=== PATIENT | female | born 1990 | race Caucasian/White ===

== ENCOUNTER 2016-09-03 11:00 | Inpatient (IN) | payer OTHER ==
[~2016-09-03] VITALS: Ht 144.8 cm; Wt 81.8 kg
[2016-09-03 11:11] VITALS: Ht 144.8 cm; Wt 81.8 kg
[2016-09-03] MEDS: LACTATED RINGER'S 1,000 ML IV SCH ×2 (11:14→16:18)
[2016-09-03] MEDS ORDERED: METHYLERGONOVINE 0.2 MG INJ IM PRN (11:30)
[2016-09-03] MEDS ORDERED: LIDOCAINE 1% (MPF) 30 ML INJ INJ PRN (11:30)
[2016-09-03] MEDS ORDERED: OXYTOCIN 30 UNITS/LR 500 ML IV PRN (11:30)
[2016-09-03] MEDS ORDERED: MISOPROSTOL 200 MCG TAB PR PRN (11:30)
[2016-09-03] MEDS ORDERED: CARBOPROST 250 MCG INJ IM PRN (11:30)
[2016-09-03 11:44] LABS: BASOPHIL # 0.1 10^3/ul (0.0-0.1); BASOPHILS % 0.5 % (0.0-2.0); EOSINOPHILS # 0.1 10^3/ul (0.0-0.5); EOSINOPHILS % 0.8 % (0.0-7.0); HEMATOCRIT 38.3 % (37.0-47.0); HEMOGLOBIN 13.2 g/dl (12.0-16.0); LYMPHOCYTES # 1.8 10^3/ul (0.8-2.9); LYMPHOCYTES % 15.9 % (15.0-51.0); MEAN CORPUSCULAR HEMOGLOBIN 28.8 pg (29.0-33.0); MEAN CORPUSCULAR HGB CONC 34.4 g/dl (32.0-37.0); MEAN CORPUSCULAR VOLUME 83.7 fl (82.0-101.0); MEAN PLATELET VOLUME 11.4 fl (7.4-10.4); MONOCYTE # 0.5 10^3/ul (0.3-0.9); MONOCYTES % 4.4 % (0.0-11.0); NEUTROPHIL # 8.9 10^3/ul (1.6-7.5); NEUTROPHILS % 78.4 % (39.0-77.0); PLATELET COUNT 156 10^3/UL (140-440); RED BLOOD COUNT 4.58 10^6/ul (4.20-5.40); RED CELL DISTRIBUTION WIDTH 13.6 % (11.5-14.5); UNCORRECTED WBC 11.4 10^3/ul (4.8-10.8); WHITE BLOOD COUNT 11.4 10^3/ul (4.8-10.8)
[2016-09-03 11:57] LABS: CONDITION 1
[2016-09-03 12:03] LABS: INR 1.04; PARTIAL THROMBOPLASTIN TIME 30.3 Sec (25.0-35.0); PROTIME 13.6 Sec (12.2-14.2); PT RATIO 1.1
[2016-09-03] MEDS ORDERED: AMPICILLIN 2 GM/NS (PMX) 100 ML ONE (12:23)
[2016-09-03] MEDS ORDERED: AMPICILLIN 2 GM/NS (PMX) 100 ML IVPB ONE (12:30)
[2016-09-03] MEDS: MISOPROSTOL 25 MCG CAPSULE PO SCH ×3 (12:44→21:00)
[2016-09-03] MEDS: AMPICILLIN 1 GM/NS (PMX) 50 ML IVPB SCH ×3 (13:00→21:02)
[2016-09-03] MEDS: LACTATED RINGER'S 1,000 ML IV PRN ×2 (19:11→22:16)
[2016-09-03] MEDS ORDERED: OXYTOCIN 30 UNITS/LR 500 ML IV SCH ×2 (20:00→22:00)
[2016-09-03] MEDS ORDERED: BUTORPHANOL 2 MG INJ IV PRN (20:00)
[2016-09-03] MEDS ORDERED: FENTAnyl 2MCG/ML-ROPIV 0.2% 100 ML ONE (22:41)
[2016-09-03] MEDS ORDERED: FENTAnyl 2MCG/ML-ROPIV 0.2% 100 ML BAG EPI SCH (23:00)
[2016-09-03] MEDS ORDERED: NALOXONE (0.4 MG/ML) INJ IV PRN (23:00)
--- NOTE | 2016-09-03 23:03 | HP ---
Date/Time of Note Date/Time of Note DATE: 09/03/16 TIME: 22:59 OB - History Hx of Present Chief Complaint: scheduled induction Last Menstrual Period: December 13, 2015 Estimated Due Date: Sep 18, 2016 : 2 Para: 0 Spontaneous : 1 Therapeutic : 0 Care: Good Care Ultrasounds: Normal mid trimester US Obstetrical Complications: Growth Restriction Medical Complications: Respiratory Past Family/Social History * Past Medical, Surgical, Family and Obstetric Histories reviewed from chart. GBS Status: Positive OB Admission Exam Physical Exam HEENT: WNL Heart: Rhythm Normal Lungs: Clear Abdomen: WNL Extremities: Normal Cervical Dilatation: Fingertip Effacement: 50% Membranes: Intact Accelerations: Accelerations Present Decelerations: No Decelerations Varibility: Moderate Last 72 hours Lab Results CBC & BMP 09/03/16 11:28 OB Assessment/Plan Reason for admission: induction of labor Plan: Induction Induction Method: per Misoprostol Protocol ALBAN ALCANTAR MD Sep 03, 2016 23:03
[2016-09-04] VITALS (41 sets, daily range): BP systolic 110–141; BP diastolic 64–94; PULSE 68–99; RESP 18
[2016-09-04] MEDS: AMPICILLIN 1 GM/NS (PMX) 50 ML IVPB SCH ×5 (00:54→16:38)
[2016-09-04] MEDS: LACTATED RINGER'S 1,000 ML IV SCH ×2 (03:36→11:53)
--- NOTE | 2016-09-04 17:36 | LDN ---
Date/Time of Note Date/Time of Note DATE: 09/04/16 TIME: 17:29 Delivery Summary over intact perineum Placenta Delivered: Spontaneously Meconium: none Perineum intact?: No (Please specify) Perineal laceration: 1 Perineal laceration repair: First degree laceration repaired with 3-0 Vicryl. Anesthesia type: Epidural Estimated blood loss: 150 Sponge & Needle done & correct: Yes All needle counts correct: Yes Any foreign bodies felt in the: No (Please specify) Problems: Infant Delivery Information Sex Infant Sex: female Apgars 1 Minute: 8 5 Minute: 8 Suctioning Nose & mouth suctioned at farheen: Yes Delee suction performed: No Umbilical Cord Umbilical cord with: 3 Vessels Cord presentations: no nuchal cord Cord Blood was obtained: Yes Mother & Baby Disposition Disposition Mom & Baby to Maternity; Good: Yes ALBAN ALCANTAR MD Sep 04, 2016 17:36
--- NOTE | 2016-09-04 20:37 | DELSUM ---
Delivery Summary A-C Datetime Report Generated by CPN: 09/04/2016 20:36 DELIVERY PERSONNEL Public Works Director: Cathryn Hebert MATERNAL INFORMATION Delivery Anesthesia: Epidural Medications in Delivery: OXYTOCIN Estimated Blood Loss (ml): 150 Placenta Cultured: No Maternal Complications: Other Other Maternal Complications: IUGR IOL RN Comments: PLACENTA TO PATHOLOGY LABOR SUMMARY EDC: 09/18/2016 00:00 No. Babies in Womb: 1 Attempted: No Labor Anesthesia: Epidural LABOR INFORMATION Reason for Induction: Other Reason for Induction- Other: IUGR Onset of Labor: 09/03/2016 19:00 Complete Dilatation: 09/04/2016 14:42 Cervical Ripening Agents: Cytotec @ Cervical Ripening Agents: Cytotec @ 50 Other Ripening Agents: care resumed Oxytocin: Augmentation Group B Beta Strep: Positive Antibiotics # of Doses: 8 Antibiotics Time of Last Dose: 1638 Steroids Given: None Reason Steroids Not Administered: Not Applicable MEMBRANES Membranes Rupture Method: Artificial Rupture of Membranes: 09/04/2016 04:49 Length of Rupture (hr): 12.30 Amniotic Fluid Color: Clear Amniotic Fluid Color: Clear Amniotic Fluid Color: Clear Amniotic Fluid Color: Clear Amniotic Fluid Amount: Moderate Amniotic Fluid Amount: Moderate Amniotic Fluid Amount: Moderate Amniotic Fluid Amount: Moderate Amniotic Fluid Amount: Moderate Amniotic Fluid Amount: Moderate Amniotic Fluid Amount: Small Amniotic Fluid Odor: None Amniotic Fluid Odor: None Amniotic Fluid Odor: None Amniotic Fluid Odor: None Amniotic Fluid Odor: None Amniotic Fluid Odor: None Amniotic Fluid Odor: None Amniotic Fluid Odor: None STAGES OF LABOR Stage 1 hr: 19 Stage 1 min: 42 Stage 2 hr: 2 Stage 2 min: 25 Stage 3 hr: 0 Stage 3 min: 3 Total Time in Labor hr: 22 Total Time in Labor min: 10 VAGINAL DELIVERY Laceration Extension: First Degree Laceration Type: Perineal Laceration Repair: Yes Initial Vag Sponge Count: 20 Final Vag Sponge Count: 20 Initial Vag Sharps Count: 2 Final Vag Sharps Count: 2 Sponge Count Correct: Yes; Vaginal Sweep Performed Sharps Count Correct: Yes BABY A INFORMATION Delivery Date/Time: 09/04/2016 17:07 Method of Delivery: Vaginal Born in Route : No : N/A Forceps: N/A Vacuum Extraction: N/A Shoulder Dystocia : N/A SHOULDER DYSTOCIA BABY A Delivery Date/Time: 09/04/2016 17:07 PRESENTATION/POSITION BABY A Presentation: Cephalic Presentation: Cephalic Presentation: Cephalic Presentation: Cephalic Presentation: Cephalic Presentation: Cephalic Cephalic Presentation: Vertex Vertex Position: Left Occipital Anterior Breech Presentation: N/A PLACENTA INFORMATION BABY A Placenta Delivery Time : 09/04/2016 17:10 Placenta Method of Delivery: Spontaneous Placenta Status: Delivered SCORES BABY A Heart Rate 1 min: >100 bpm Resp Effort 1 min: Good Cry Reflex Irritability 1 min: Cough/Sneeze/Pulls Away Muscle Tone 1 min: Active Motion Color 1 min: Blue/Pale Resuscitation Effort 1 min: Oxygen SCORE 1 MIN: 8 Heart Rate 5 min: >100 bpm Resp Effort 5 min: Good Cry Reflex Irritability 5 min: Cough/Sneeze/Pulls Away Muscle Tone 5 min: Active Motion Color 5 min: Blue/Pale Resuscitation Effort 5 min: Tactile Stimulation; Oxygen SCORE 5 MIN: 8 INFANT INFORMATION BABY A Gestational Age at Delivery: 38.0 Gestational Status: Early Term- 37- 38.6 Weeks Infant Outcome : Liveborn Condition : Stable Sex: Female IDENTIFICATION/MEDS BABY A ID Band Number: [id number] ID Band Location: Right Leg; Left Arm Sensor Applied: Yes Sensor Number: [id number] Sensor Location : Cord Clamp Vitamin K Given : Not Given Erythromycin Given: Not Given WEIGHT/LENGTH BABY A Birthweight (gm): 2230 Weight (lb): 4 Infant Weight (oz): 15 Infant Length (in): 18.50 Length (cm): 46.99 CORD INFORMATION BABY A No. Cord Vessels: 3 Nuchal Cord : N/A Cord Blood Taken: Yes Infant Suction: Nose; Pharynx ASSESSMENT BABY A Complications: Decreased Variability; Multiple Variable Decels; Other Infant Complications- Other: iugr Physical Findings at Delivery: Molding of the Head; Puncture Wnd - Scalp Elec Respirations: Appears Normal Solution Mixer/ALS Called : Yes Infant Care By: kale pruett/nicu rt Transferred To: Remains with Mother
[2016-09-04] MEDS ORDERED: WITCH HAZEL/GLYCERIN PAD PR PRN (21:00)
[2016-09-04] MEDS ORDERED: DIBUCAINE 1% 30 GM OINT PR PRN (21:00)
[2016-09-04] MEDS ORDERED: OXYTOCIN 30 UNITS/LR 500 ML IV PRN (21:00)
[2016-09-04] MEDS ORDERED: CARBOPROST 250 MCG INJ IM PRN (21:00)
[2016-09-04] MEDS ORDERED: METHYLERGONOVINE 0.2 MG INJ IM PRN (21:00)
[2016-09-04] MEDS ORDERED: MISOPROSTOL 200 MCG TAB PR PRN (21:00)
[2016-09-04] MEDS ORDERED: BENZOCAINE 20% 56 ML SPRAY TOP PRN (21:00)
[2016-09-04] MEDS ORDERED: ACETAMINOPHEN 325 MG TAB PO PRN (21:00)
[2016-09-04] MEDS ORDERED: ACETAMINOPHEN/CODEINE #3 TAB PO PRN (21:00)
[2016-09-04] MEDS ORDERED: IBUPROFEN 600 MG TAB PO SCH (21:00)
[2016-09-04] MEDS: SENNA/DOCUSATE NA (8.6MG/50MG) TAB PO SCH (21:13)
[2016-09-04] MEDS: LACTATED RINGER'S 1,000 ML IV* SCH (21:17)
[2016-09-04] MEDS ORDERED: LANOLIN 7 GM TUBE TOP PRN (23:30)
[2016-09-04] MEDS: IBUPROFEN 600 MG TAB PO SCH (23:55)
[2016-09-05] VITALS: BP 99/50; PULSE 86; RESP 18
[2016-09-05 04:30] VITALS: BP 96/50; PULSE 83; RESP 18
[2016-09-05] MEDS: LACTATED RINGER'S 1,000 ML IV* SCH (04:39)
[2016-09-05] MEDS: IBUPROFEN 600 MG TAB PO SCH ×4 (05:29→23:57)
[2016-09-05 08:30] VITALS: BP 110/64; PULSE 76; RESP 16
[2016-09-05 09:26] LABS: BASOPHIL # 0.1 10^3/ul (0.0-0.1); BASOPHILS % 0.4 % (0.0-2.0); EOSINOPHILS # 0.1 10^3/ul (0.0-0.5); EOSINOPHILS % 0.9 % (0.0-7.0); HEMATOCRIT 32.5 % (37.0-47.0); HEMOGLOBIN 11.3 g/dl (12.0-16.0); LYMPHOCYTES # 2.3 10^3/ul (0.8-2.9); MEAN CORPUSCULAR HEMOGLOBIN 29.5 pg (29.0-33.0); MEAN CORPUSCULAR HGB CONC 34.9 g/dl (32.0-37.0); MEAN CORPUSCULAR VOLUME 84.6 fl (82.0-101.0); MONOCYTE # 0.8 10^3/ul (0.3-0.9); MONOCYTES % 5.8 % (0.0-11.0); NEUTROPHILS % 76.9 % (39.0-77.0); PLATELET COUNT 124 10^3/UL (140-440); RED BLOOD COUNT 3.84 10^6/ul (4.20-5.40); RED CELL DISTRIBUTION WIDTH 13.9 % (11.5-14.5); UNCORRECTED WBC 14.3 10^3/ul (4.8-10.8); WHITE BLOOD COUNT 14.3 10^3/ul (4.8-10.8)
[2016-09-05] MEDS: SENNA/DOCUSATE NA (8.6MG/50MG) TAB PO SCH ×2 (09:34→21:10)
[2016-09-05 09:38] LABS: CONDITION 1; LH ANALYZER COMMENTS 1; SUSPECT 1
[2016-09-05 16:00] VITALS: BP 110/64; PULSE 76; RESP 16
--- NOTE | 2016-09-05 19:52 | DS ---
Date/Time of Note Date/Time of Note DATE: 09/05/16 TIME: 19:51 Obstetrical Discharge Record Final Diagnosis Final Diagnosis: Term delivered Vaginal Delivery Obstetrical Delivery: Spontaneous Complications Induction: Yes Condition on Discharge Physical Assessment Voiding: Yes Bowel Movement: Yes Breast: Soft, non-tender Fundus: Firm Calf Tenderness: No Patient Condition: Stable ALBAN ALCANTAR MD Sep 05, 2016 19:52
[2016-09-05 20:00] VITALS: BP 117/64; PULSE 79; RESP 18
[2016-09-06 03:45] VITALS: BP 110/70; PULSE 78; RESP 18
[2016-09-06] MEDS: IBUPROFEN 600 MG TAB PO SCH ×2 (06:00→11:24)
[2016-09-06 08:35] VITALS: BP 115/75; PULSE 87; RESP 14
[2016-09-06] MEDS ORDERED: DIPHTH/TET/ACEL PERTUSS (ADULT) 0.5 ML VIAL IM* ONE (09:00)
[2016-09-06] MEDS: SENNA/DOCUSATE NA (8.6MG/50MG) TAB PO SCH (09:16)
[2016-09-06 16:50] VITALS: BP 120/78; PULSE 70; RESP 14
== END 2016-09-06 18:50 | disposition home or self-care (01) | DRG 775 ==
LOC: L-D 11:02 → PP1 09-04 20:19
PROVIDERS: ADMIT Obstetrics & Gynecology; ATTEND Obstetrics & Gynecology
PROC: 10E0XZZ Delivery of Products of Conception, External Approach (ICD-10-PCS; principal; 2016-09-04)
PROC: 0HQ9XZZ Repair Perineum Skin, External Approach (ICD-10-PCS; 2016-09-04)
PROC: 3E00X4Z Introduction of Serum, Toxoid and Vaccine into Skin and Mucous Membranes, External Approach (ICD-10-PCS; 2016-09-06)
DX: O70.0 First degree perineal laceration during delivery (principal); Z23 Encounter for immunization; Z3A.37 37 weeks gestation of pregnancy; Z37.0 Single live birth
CPT/HCPCS: 62319; 85025; 85610; 85730; 86592; 86900; 86901; 87340; 88307; 90715; J0290; J2590; J3010; J7120

== ENCOUNTER 2017-12-27 05:22 | Inpatient (IN) | END 2017-12-29 16:15 | disposition home or self-care (01) | DRG 775 ==

== ENCOUNTER → 2018-06-08 | Outpatient (CLI) | END | disposition home or self-care (01) ==

== ENCOUNTER 2019-01-18 06:50 | Inpatient (IN) | payer OTHER ==
[~2019-01-18] VITALS: Ht 149.9 cm; Wt 80.6 kg
[2019-01-18 06:58] VITALS: BP 102/64; PULSE 75; RESP 17; Ht 149.9 cm; Wt 80.6 kg
[2019-01-18] MEDS ORDERED: PREN-93 PO (07:06)
--- NOTE | 2019-01-18 07:56 | TRIAGE ---
OB Triage Datetime Report Generated by CPN: 01/18/2019 07:56 Datetime: 01/18/2019 07:37 Maternal Assessment Level of Consciousness: Keenly Alert, Responsive DTR's/Clonus: DTRs 1+ Headache: Denies Blurred Vision: No Nausea/Vomiting: Denies RUQ Epigastric Pain: Denies Facial Edema: None Labor Evaluation Frequency: 3-4 Monitor Mode: External Duration (sec)2399: 40-80 Quality: Mild Pattern: Normal: <= 5 Contractions in 10 Minutes Resting Tone [place]: Relaxed Heart Rate FHR Baseline Rate: 145 Monitor Mode: External US Variability: Moderate 6-25 bpm Accelerations: 15X15 Decelerations: None Category: Category I Pain Assessment Pain Scale: 5 Pain Presence: Intermittent Pain Type: Contraction Pain Location: Back Pain Goal: 3 Membrane Status: Intact Datetime: 01/18/2019 07:09 Vaginal Exam Dilatation (cms): 4.0 Effacement (%): 80 Station: -3 Exam By: ROSANNA LUCERO Membrane Status: Ruptured Vaginal Bleeding: None Cervix, Consistency: Soft Cervix, Position: Midposition Datetime: 01/18/2019 06:58 Stage of : OB Triage Assessment Type: Triage Maternal Assessment Level of Consciousness: Keenly Alert, Responsive DTR's/Clonus: DTRs 2+; No Clonus Headache: Denies Blurred Vision: No Respiratory Effort: Unlabored; Regular Rhythm; Equal Expansion Breath Sounds, Left: Clear and Equal Breath Sounds, Right: Clear and Equal Nausea/Vomiting: Denies RUQ Epigastric Pain: Denies Lower Extremities Edema: None Degree: None Upper Extremities Edema: None Degree: None Facial Edema: None Temperature Route: Oral Fall Risk Assessment History of Falling: (0) No Secondary Diagnosis: (0) No Ambulatory Aid: (0) Bedrest/Nurse Assist IV Therapy: (0) No Gait: (0) Normal/Bedrest/Immobile Mental Status: (0) Oriented to Own Ability Fall Score: 0 Fall Risk Score Definition: No Risk: No action required Comments: Patient states she feels active movement Pain Assessment Pain Scale: 0 Pain Presence: None/Denies Pain Type: N/A Pain Assessment Comments: Patient denies feeling contractions at this time. Datetime: 01/18/2019 06:57 Monitor Mode: External (Annotations: applied) Quality: Mild Resting Tone [place]: Relaxed Monitor Mode: External US (Annotations: applied) Datetime: 01/18/2019 06:46 Time of Arrival: 01/18/2019 06:46 EGA: 39.1 Arrived By: Wheelchair Arrived From: Home Chief Complaint: SROM clear fluids on 01/18/19 at 0602 Movement: Present Contractions: Denies/Absent Rupture of Membranes: Ruptured Vaginal Bleeding: None Vaginal Discharge: Denies Recent Sexual Intercouse: Denies Abdominal Trauma: Not Applicable Patient Complaints: Other Time Provider Notified: 01/18/2019 07:15 Provider Notified: MARLEN Initial Plan: VERA x2
[2019-01-18] MEDS ORDERED: METHYLERGONOVINE 0.2 MG INJ IM PRN ×2 (08:00→17:00)
[2019-01-18] MEDS ORDERED: OXYTOCIN 30 UNITS/LR 500 ML IV PRN ×2 (08:00→17:00)
[2019-01-18] MEDS ORDERED: CARBOPROST 250 MCG INJ IM PRN ×2 (08:00→17:00)
[2019-01-18] MEDS ORDERED: AMPICILLIN 2 GM/NS (PMX) 100 ML IV ONE (08:00)
[2019-01-18] MEDS ORDERED: LIDOCAINE 1% (MPF) 30 ML INJ INJ PRN (08:00)
[2019-01-18] MEDS ORDERED: BUTORPHANOL 2 MG INJ IV PRN (08:00)
[2019-01-18] MEDS ORDERED: MISOPROSTOL 200 MCG TAB PR PRN ×2 (08:00→17:00)
[2019-01-18] MEDS ORDERED: MINERAL OIL 30ML CUP PO ONE ×2 (08:00→08:30)
[2019-01-18] MEDS ORDERED: OXYTOCIN 30 UNITS/LR 500 ML IV SCH ×2 (08:00)
[2019-01-18] MEDS: LACTATED RINGER'S 1,000 ML IV SCH ×2 (08:08→13:13)
[2019-01-18] MEDS ORDERED: AMPICILLIN 1 GM/NS (PMX) 50 ML IV SCH (12:00)
--- NOTE | 2019-01-18 12:56 | HP ---
Date/Time of Note Date/Time of Note DATE: 01/18/19 TIME: 12:55 OB - History Hx of Present Free Text/Dictation 28-year-old 3 para 2 at 39 weeks and 1 day gestation with estimated date of delivery January 24, 2019 Patient presents with spontaneous rupture membrane and regular contractions Patient reports positive movement, denies vaginal bleeding GBS status is negative Estimated Due Date: Jan 24, 2019 : 3 Para: 2 Care: Good Care Obstetrical Complications: None Medical Complications: None Past Family/Social History * Past medical history and past surgical history are noncontributory to this admission OB Admission Exam Vital Signs Vital Signs Vital Signs Date Temp Pulse Resp B/P (MAP) Pulse Ox O2 O2 Flow FiO2 Time Delivery Rate 01/18/19 98.1 75 17 102/64 Room Air 06:58 (77) Physical Exam HEENT: WNL Heart: Rhythm Normal Lungs: Clear, Equal Abdomen: WNL Extremities: Normal Reflexes: Normal Cervical Dilatation: 4cm Effacement: 75% Station: -3 Membranes: Ruptured Amniotic Fluid: Clear Heart Rate: 140's Accelerations: Accelerations Present Decelerations: No Decelerations Varibility: Moderate Contractions on Admission: < 5 Minutes Apart Intensity: Moderate Last 72 hours Lab Results CBC & BMP 01/18/19 08:00 OB Assessment/Plan Reason for admission: rupture of membranes Induction Method: per Pitocin Protocol Other plan: Admit to labor and delivery Pain meds as needed Copies To: CC: BEE ARIZMENDI MD ; CYNDIE COLLINS MD Jan 18, 2019 12:56
--- NOTE | 2019-01-18 13:21 | PREAC ---
Date/Time of Note Date/Time of Note DATE: 01/18/19 TIME: 13:20 Anesthesia Eval and Record Evaluation Time Pre-Procedure Interview DATE: 01/18/19 TIME: 13:20 Age 28 Sex female NPO: 8 hrs Preoperative diagnosis labor pain Planned procedure epidural Past Medical History Past Medical History: Includes Surgery & Anesthesia Issues No known issue Meds Anticoagulation: No Beta Stefani within 24 hr: No Reason Beta Stefani not given: Pt. not on B-Stefani Reported Medications Vit No.124/Iron/FA ( Vitamin Tablet) 1 Each Tablet, 1 EACH PO, TAB 01/18/19 Current Medications Lactated Ringer's 1,000 ml @ 125 mls/hr Q8H IV Last administered on 01/18/19at 13:13; Admin Dose 125 MLS/HR; Start 01/18/19 at 07:49 Ampicillin 50 ml @ 100 mls/hr Q4H IV ; Start 01/18/19 at 12:00 Butorphanol Tartrate (Stadol) 2 mg Q2H PRN IV .PAIN SCALE 6-10; Start 01/18/19 at 08:00 Lidocaine (Xylocaine 1% (Mpf)) 30 ml ONCE PRN INJ .EPISIOTOMY; Start 01/18/19 at 08:00 Oxytocin/Lactated Ringer's 500 ml @ 500 mls/hr ONCE POST IV ; Start 01/18/19 at 08:00 Oxytocin/Lactated Ringer's 500 ml @ 125 mls/hr POST IV ; Start 01/18/19 at 08:00 Oxytocin/Lactated Ringer's 500 ml @ 0 mls/hr ONCE PRN IV .VAGINAL BLEEDING; Start 01/18/19 at 08:00 Methylergonovine Maleate (Methergine) 0.2 mg ONCE PRN IM .VAGINAL BLEEDING; Start 01/18/19 at 08:00 Carboprost Tromethamine (Hemabate) 250 mcg ONCE PRN IM .VAGINAL BLEEDING; Start 01/18/19 at 08:00 Misoprostol (Cytotec) 1,000 mcg ONCE PRN DE .VAGINAL BLEEDING; Start 01/18/19 at 08:00 Meds reviewed: Yes Allergies Coded Allergies: No Known Allergy (Unverified , 01/18/19) Allergies Reviewed: Yes Labs/Studies Labs Reviewed: Reviewed by anesthesiologist Result Diagram: 01/18/19 0800 Laboratory Tests 01/18/19 08:00 Blood Bank Test 01/18/19 08:00 Antibody Screen NEGATIVE Blood Type O POSITIVE Rh Immune Globulin Candidate NO test: Positive Studies: ECG (n/a), CXR (n/a) Pre-procedure Exam Last vitals Vital Signs Date Temp Pulse Resp B/P (MAP) Pulse Ox O2 O2 Flow FiO2 Time Delivery Rate 01/18/19 98.1 75 17 102/64 Room Air 06:58 (77) Airway: Adequate mouth opening Mallampati: Mallampati I Teeth: Normal Lung: Normal Heart: Normal ASA Physical Status ASA physical status: 2 Emergency: None Planned Anesthetic Neuraxial: Epidural Pre-operative Attestations Prior to commencing anesthesia and surgery, the patient was re-evaluated, there was verification of: *The patient's identity *The results of appropriate recent lab work and preoperative vital signs *The above evaluation not changing prior to induction *Anesthetic plan, risk benefits, alternative and complications discussed with patient/family; questions answered; patient/family understands, accepts and wishes to proceed. CAYETANO HUNT MD Jan 18, 2019 13:21
[2019-01-18] MEDS ORDERED: FENTAnyl 2MCG/ML-ROPIV 0.2% 100 ML BAG EPI SCH (13:30)
[2019-01-18] MEDS ORDERED: NALOXONE (0.4 MG/ML) INJ IV PRN (13:30)
[2019-01-18] MEDS ORDERED: FENTAnyl 2MCG/ML-ROPIV 0.2% 100 ML ONE (13:35)
[2019-01-18] MEDS ORDERED: ACETAMINOPHEN 500 MG TAB PO STA (14:34)
[2019-01-18] MEDS ORDERED: KETOROLAC 30 MG INJ IV STA (14:34)
--- NOTE | 2019-01-18 14:34 | LDN ---
Date/Time of Note Date/Time of Note DATE: 01/18/19 TIME: 14:31 Delivery Summary Normal spontaneous vaginal delivery of a viable over intact perineum Weeks of Gestation 39+ weeks Placenta Delivered: Spontaneously, Intact & Complete Meconium: none Episiotomy: No Perineal laceration: 1 (Superficial) Laceration repair: Superficial perineal laceration was repaired with single stitch of 3-0 chromic on a small half needle Anesthesia type: Epidural Estimated blood loss: 200 Sponge & Needle done & correct: Yes All needle counts correct: Yes Any foreign bodies felt in the: No Infant Delivery Information Sex Infant Sex: female Apgars 1 Minute: 9 5 Minute: 9 Suctioning Nose & mouth suctioned at farheen: Yes Delee suction performed: No Umbilical Cord Umbilical cord with: 3 Vessels Cord presentations: no nuchal cord Cord Blood was obtained: Yes Mother & Baby Disposition Disposition Mom & Baby to Maternity; Good: Yes (Mother and baby were recovered in good condition) Mom transferred to: Other (Maternity) Baby to NICU: No BEE ARIZMENDI MD Jan 18, 2019 14:34
[2019-01-18 16:10] VITALS: BP 103/70; PULSE 68; RESP 18
[2019-01-18] MEDS ORDERED: LANOLIN HPA 1 PKT TOP PRN (17:00)
[2019-01-18] MEDS ORDERED: DIBUCAINE 1% 30 GM OINT TOP PRN (17:00)
[2019-01-18] MEDS ORDERED: HYDROCODONE/APAP (5/325) TAB PO PRN ×2 (17:00)
[2019-01-18] MEDS ORDERED: ZOLPIDEM 5 MG TAB PO PRN (17:00)
[2019-01-18] MEDS ORDERED: BENZOCAINE 20% 56 ML SPRAY TOP PRN (17:00)
[2019-01-18] MEDS ORDERED: WITCH HAZEL/GLYCERIN PAD PR PRN (17:00)
[2019-01-18] MEDS: CEPHALEXIN 500 MG CAP PO SCH ×2 (18:02→23:46)
[2019-01-18] MEDS: IBUPROFEN 600 MG TAB PO SCH ×2 (18:02→23:46)
[2019-01-18 20:37] VITALS: BP 105/69; PULSE 85; RESP 18
[2019-01-18] MEDS: LACTATED RINGER'S 1,000 ML IV* SCH (21:05)
[2019-01-18] MEDS: MAGNESIUM HYDROXIDE 30ML CUP PO SCH (23:46)
[2019-01-18] MEDS: SENNA/DOCUSATE NA (8.6MG/50MG) TAB PO SCH (23:46)
[2019-01-19] MEDS: LACTATED RINGER'S 1,000 ML IV* SCH ×3 (00:43→16:43)
[2019-01-19 03:49] VITALS: BP 96/52; PULSE 73; RESP 18
[2019-01-19] MEDS: CEPHALEXIN 500 MG CAP PO SCH ×4 (05:51→23:56)
[2019-01-19] MEDS: IBUPROFEN 600 MG TAB PO SCH ×4 (05:52→23:56)
[2019-01-19 08:00] VITALS: BP 100/60; PULSE 80; RESP 18
[2019-01-19] MEDS: MAGNESIUM HYDROXIDE 30ML CUP PO SCH ×2 (08:50→20:41)
[2019-01-19] MEDS: SENNA/DOCUSATE NA (8.6MG/50MG) TAB PO SCH ×2 (08:50→20:41)
--- NOTE | 2019-01-19 12:29 | DS ---
Date/Time of Note Date/Time of Note Home next day or today DATE: 01/19/19 TIME: 12:28 Obstetrical Discharge Record Final Diagnosis Final Diagnosis: Term delivered Other Final Diagnosis Status post vaginal delivery Vaginal Delivery Obstetrical Delivery: Spontaneous, Laceration, Repaired Condition on Discharge Physical Assessment Last Vitals: See nurse's notes Voiding: Yes Bowel Movement: Yes Breast: Soft, non-tender, Filling Fundus: Firm Abdomen and Incision: Abdomen is soft with firm fundus Episiotomy: Perineum is clean and appears to be healing well Calf Tenderness: No Patient Condition: Good BEE ARIZMENDI MD Jan 19, 2019 12:29
--- NOTE | 2019-01-19 12:30 | PD.PPDC ---
HOISTING ENGINE OPERATOR Discharge Instruction Provider Information Physician Information 28-year-old female had vaginal delivery Diagnosis [id number] Final Diagnosis: Nxcie2e Status post vaginal delivery Condition [id number] Patient Condition: [id number] Good Diet [id number] Diet: Ttahw8m Resume Regular Diet Activity/Restrictions [id number] Activity: [id number] Normal Activity May Shower [id number] Restrictions: Fzwss2n Nothing in the Vagina [id number] Return to Work or School: [id number] Mar 08, 2019 Follow-up Follow-up with Physician: 2, 4, Week/Weeks (In clinic for follow-up) Return to clinic for [id number] OB Instructions: Hniyh8r Breast Tenderness Depression Comment: Pelvic rest for 6 weeks BEE ARIZMENDI MD Jan 19, 2019 12:30
[2019-01-19] MEDS ORDERED: IBUP-1542 PO (12:31)
[2019-01-19 17:13] VITALS: BP 96/52; PULSE 86; RESP 18
[2019-01-19 20:00] VITALS: BP 106/71; PULSE 81; RESP 18
[2019-01-20] MEDS: LACTATED RINGER'S 1,000 ML IV* SCH (00:43)
[2019-01-20 04:00] VITALS: BP 95/68; PULSE 75; RESP 20
[2019-01-20] MEDS: IBUPROFEN 600 MG TAB PO SCH ×3 (06:34→17:26)
[2019-01-20] MEDS: CEPHALEXIN 500 MG CAP PO SCH ×3 (06:34→17:26)
--- NOTE | 2019-01-20 07:32 | PAC ---
Date/Time of Note Date/Time of Note DATE: 01/20/19 TIME: 07:31 Post-Anesthesia Notes Post-Anesthesia Note Last documented vital signs Vital Signs Date Temp Pulse Resp B/P (MAP) Pulse Ox O2 O2 Flow FiO2 Time Delivery Rate 01/20/19 97.4 75 20 95/68 (77) 100 Room Air 04:00 Activity: WNL Respiratory function: WNL Cardiovascular function: WNL Mental status: Baseline Pain reasonably controlled: Yes Hydration appropriate: Yes Nausea/Vomiting absent: No CAYETANO HUNT MD Jan 20, 2019 07:32
[2019-01-20 08:00] VITALS: BP 104/64; PULSE 74; RESP 18
[2019-01-20] MEDS: MAGNESIUM HYDROXIDE 30ML CUP PO SCH (08:40)
[2019-01-20] MEDS: SENNA/DOCUSATE NA (8.6MG/50MG) TAB PO SCH (08:40)
[2019-01-20] MEDS ORDERED: DIPHTH/TET/ACEL PERTUSS (ADULT) 0.5 ML VIAL IM* ONE (09:00)
[2019-01-20] MEDS ORDERED: VARICELLA VACCINE LIVE/PF 1,350 UNIT/0.5 ML ML SC* ONE (09:00)
[2019-01-20] MEDS ORDERED: MEASLES,MUMPS,RUBELLA VACCINE INJ SC* ONE (09:00)
[2019-01-20 16:46] VITALS: BP 99/63; PULSE 94; RESP 18
--- NOTE | 2019-01-21 18:46 | DELSUM ---
Delivery Summary A-C Datetime Report Generated by CPN: 01/21/2019 18:46 DELIVERY PERSONNEL Household Coordinator: Ariella Teixeira MATERNAL INFORMATION Delivery Anesthesia: Epidural Medications in Delivery: LR WITH 30 UNITS PITOCIN Delivery QBL (ml): 200 Placenta Cultured: No Maternal Complications: None Other Maternal Complications: IN LABOR LABOR SUMMARY EDC: 01/24/2019 00:00 No. Babies in Womb: 1 Attempted: No Labor Anesthesia: Epidural LABOR INFORMATION Reason for Induction: Not Applicable Onset of Labor: 01/18/2019 06:02 Complete Dilatation: 01/18/2019 14:07 Oxytocin: N/A Group B Beta Strep: Negative Antibiotics # of Doses: 0 Steroids Given: None Reason Steroids Not Administered: Not Applicable MEMBRANES Membranes Rupture Method: Spontaneous Rupture of Membranes: 01/18/2019 06:02 Length of Rupture (hr): 8.22 Amniotic Fluid Color: Clear Amniotic Fluid Amount: Small Amniotic Fluid Odor: Normal STAGES OF LABOR Stage 1 hr: 8 Stage 1 min: 5 Stage 2 hr: 0 Stage 2 min: 8 Stage 3 hr: 0 Stage 3 min: 1 Total Time in Labor hr: 8 Total Time in Labor min: 14 VAGINAL DELIVERY Episiotomy: None Laceration Extension: N/A Laceration Type: Vaginal Laceration Repair: Yes Initial Vag Sponge Count: 10 Final Vag Sponge Count: 10 Initial Vag Sharps Count: 1 Final Vag Sharps Count: 1 Sponge Count Correct: Yes Sharps Count Correct: Yes BABY A INFORMATION Infant Delivery Date/Time: 01/18/2019 14:15 Method of Delivery: Vaginal Born in Route : No : N/A Forceps: N/A Vacuum Extraction: N/A Shoulder Dystocia : N/A SHOULDER DYSTOCIA BABY A Infant Delivery Date/Time: 01/18/2019 14:15 PRESENTATION/POSITION BABY A Presentation: Cephalic Cephalic Presentation: Vertex Vertex Position: Left Occipital Anterior Breech Presentation: N/A PLACENTA INFORMATION BABY A Placenta Delivery Time : 01/18/2019 14:16 Placenta Method of Delivery: Spontaneous Placenta Status: Delivered SCORES BABY A Heart Rate 1 min: >100 bpm Resp Effort 1 min: Good Cry Reflex Irritability 1 min: Cough/Sneeze/Pulls Away Muscle Tone 1 min: Active Motion Color 1 min: Body [place], Extremit Blue Resuscitation Effort 1 min: Tactile Stimulation SCORE 1 MIN: 9 Heart Rate 5 min: >100 bpm Resp Effort 5 min: Good Cry Reflex Irritability 5 min: Cough/Sneeze/Pulls Away Muscle Tone 5 min: Active Motion Color 5 min: Body [place], Extremit Blue Resuscitation Effort 5 min: Tactile Stimulation SCORE 5 MIN: 9 INFORMATION BABY A Gestational Age at Delivery: 39.1 Gestational Status: Full Term- 39- 40.6 Weeks Outcome : Liveborn Infant Condition : Stable Infant Sex: Female IDENTIFICATION/MEDS BABY A ID Band Number: [id number] ID Band Location: Right Leg; Left Arm Sensor Applied: Yes Sensor Number: [id number] Sensor Location : Cord Clamp Vitamin K Given : Not Given Erythromycin Given: Not Given WEIGHT/LENGTH BABY A Infant Birthweight (gm): 2575 Infant Weight (lb): 5 Weight (oz): 11 Infant Length (in): 19.00 Infant Length (cm): 48.26 CORD INFORMATION BABY A No. Cord Vessels: 3 Nuchal Cord : N/A Cord Blood Taken: Yes Infant Suction: Mouth; Nose ASSESSMENT BABY A Infant Complications: None Physical Findings at Delivery: Within Normal Limits Respirations: Appears Normal Operations Research Manager/ALS Called : No Transferred To: Remains with Mother
== END 2019-01-20 18:45 | disposition home or self-care (01) | DRG 807 ==
LOC: OBT 06:50 → L-D 06:55 → OBT 07:15 → L-D 07:15 → PP1 15:57
PROVIDERS: ADMIT Obstetrics & Gynecology; ATTEND Obstetrics & Gynecology
PROC: 10E0XZZ Delivery of Products of Conception, External Approach (ICD-10-PCS; principal; 2019-01-18)
PROC: 0HQ9XZZ Repair Perineum Skin, External Approach (ICD-10-PCS; 2019-01-18)
DX: O70.9 Perineal laceration during delivery, unspecified (principal); Z37.0 Single live birth; Z3A.39 39 weeks gestation of pregnancy
CPT/HCPCS: 62322; 84112; 85025; 85610; 85730; 86592; 86850; 86900; 86901; 90716; G0463; J2590; J3010; J7120